=== PATIENT | male | born 1985 | race Caucasian/White ===

== ENCOUNTER 2016-06-17 19:27 | Emergency (ER) | payer BC, OTHER ==
[2016-06-17] MEDS ORDERED: KETOROLAC 30 MG/ML 1 ML VIAL IVP STA (20:01)
[2016-06-17] MEDS ORDERED: METOCLOPRAMIDE 5 MG/ML 2 ML VIAL IVP STA (20:01)
[2016-06-17] MEDS ORDERED: SODIUM CHLORIDE 0.9% 500 ML IV STA (20:01)
[2016-06-17 20:16] LABS: Basophils # (A) 0.1 k/uL (0-0.2); Basophils % (A) 1 %; CH 33.1; CHCM 33.5; Eosinophils # (A) 0.3 k/uL (0-0.7); Eosinophils % (A) 3 %; HCT 51.8 % (39.0-53.0); HDW 2.23; HGB 16.8 gm/dL (13.0-17.5); Luc # (Auto) 0.27; Luc % (Auto) 3; Lymphocytes # (A) 2.1 k/uL (1.0-4.8); Lymphocytes % (A) 21 %; MCH 32.1 pg (25.0-35.0); MCHC 32.4 g/dL (31.0-37.0); MCV 99.1 fL (80.0-100.0); Mean Platelet Volume 9.1; Monocytes # (A) 0.5 k/uL (0-1.0); Monocytes % (A) 5 %; Neutrophils # (A) 6.5 k/uL (1.3-7.7); Neutrophils % (A) 68 %; RBC 5.22 m/uL (4.30-5.90); RDW 13.1 % (11.5-15.5); WBC 9.6 k/uL (3.8-10.6); WBC (Perox) 9.57
[2016-06-17 20:27] LABS: Amorphous Sediment,Urine Rare /hpf; Appearance,Urine Cloudy (Clear); Bacteria,Urine Moderate /hpf; Bilirubin,Urine Negative (Negative); Glucose,Urine (UA) Negative (Negative); Ketones,Urine Negative (Negative); Leukocyte Esterase,Urine Negative (Negative); Mucus,Urine Rare /hpf; Nitrite,Urine Negative (Negative); PH, Urine 7.5 (5.0-8.0); Particle Count 15102; Protein,Urine Trace (Negative); RBC,Urine 2 /hpf (0-5); Specific Gravity,Urine 1.021 (1.001-1.035); UA Billing (MACRO vs. MICRO) MICRO; Urobilinogen,Urine <2.0 mg/dL (<2.0)
[2016-06-17 20:28] LABS: Amylase 41 U/L (30-110); Anion Gap 13 mmol/L; Calcium 9.6 mg/dL (8.4-10.2); Carbon Dioxide 27 mmol/L (22-30); Chloride 105 mmol/L (98-107); Glucose 99 mg/dL (74-99); Non-African American GFR(MDRD) >60 (>60 ml/min/1.73 sqM); Sodium 145 mmol/L (137-145); Total Bilirubin 0.7 mg/dL (0.2-1.3)
[2016-06-17 20:34] LABS: ALT 34 U/L (21-72); AST 29 U/L (17-59); Alkaline Phosphatase 52 U/L (38-126); Blood Urea Nitrogen 11 mg/dL (9-20); Potassium 5.3 mmol/L (3.5-5.1)
--- NOTE | 2016-06-17 20:37 | XR ---
EXAMINATION TYPE: XR abdomen 2V DATE OF EXAM: 06/17/2016 8:32 PM CLINICAL HISTORY: Abdominal pain not further specified per order. History of kidney stones presents w ith right flank pain with nausea and vomiting per patient TECHNIQUE: Supine and upright views of the abdomen are obtained. COMPARISON: Abdominal x-ray October 07, 2013. CT abdomen and pelvis April 12, 2015. FINDINGS: There is some paucity of bowel gas. Visualized gas is noted in nondistended small and larg e bowel loops. There is air-fluid level in somewhat prominent stomach, correlate for recent meal sisi stion. There is no pneumoperitoneum or suspicious calcification seen. Lung bases are clear. Visualize d osseous structures are intact. IMPRESSION: Overall nonspecific favor nonobstructive bowel gas pattern. No definite nephrolithiasis.
--- NOTE | 2016-06-17 21:31 | ED ---
General Adult HPI - General Chief complaint: Abdominal Pain Stated complaint: abdominal pain Time Seen by Provider: 06/17/16 19:39 Source: patient Mode of arrival: ambulatory Limitations: no limitations - Related Data Previous Rx's Medication Instructions Recorded Ondansetron Odt [Zofran ODT] 4 mg PO Q8HR PRN #5 tab 06/17/16 Allergies Allergy/AdvReac Type Severity Reaction Status Date / Time No Known Allergies Allergy Verified 06/17/16 19:50 Review of Systems ROS Statement: Those systems with pertinent positive or pertinent negative responses have been documented in the HPI. ROS Other: All systems not noted in ROS Statement are negative. Past Medical History Past Medical History: No Reported History Additional Past Medical History / Comment(s): kidney stones History of Any Multi-Drug Resistant Organisms: None Reported Past Surgical History: No Surgical Hx Reported Past Psychological History: No Psychological Hx Reported Smoking Status: Former smoker Past Alcohol Use History: Occasional Past Drug Use History: None Reported General Exam Limitations: no limitations Course Vital Signs 06/17/16 06/17/16 19:32 22:13 Temperature 98.1 F Pulse Rate 98 73 Respiratory 20 16 Rate Blood Pressure 129/65 115/56 O2 Sat by Pulse 98 97 Oximetry Medical Decision Making - Medical Decision Making Medical decision patient's white count is 9.6 hemoglobin 16.8 hematocrit of 41.8. Patient's potassium is 5.3 he is being rehydrated. The patient's BUN 11 creatinine 0.9 the GFR greater than 60. Glucose 99. Urine shows 2 red blood cells. X-ray of the abdomen was done and reviewed by radiologist's he compared this to previous x-ray and CAT scan. His final impression is overall a nonspecific favor nonobstructive bowel gas pattern. No definite nephrolithiasis. As read by Dr. rhodes At this time the patient is requesting to go home. Wants a work note for today. No pain whatsoever. No nausea no vomiting. He will be given a prescription for Zofran in case he gets a recurrent discomfort. He may have passed a stone already. Advised to follow-up with the family physician. - Lab Data Result diagrams: 06/17/16 19:55 06/17/16 19:55 Lab Results 06/17/16 06/17/16 06/17/16 Range/Units 19:55 19:55 19:55 WBC 9.6 (3.8-10.6) k/uL RBC 5.22 (4.30-5.90) m/uL Hgb 16.8 (13.0-17.5) gm/dL Hct 51.8 (39.0-53.0) % MCV 99.1 (80.0-100.0) fL MCH 32.1 (25.0-35.0) pg MCHC 32.4 (31.0-37.0) g/dL RDW 13.1 (11.5-15.5) % Plt Count 188 (150-450) k/uL Neutrophils % 68 % Lymphocytes % 21 % Monocytes % 5 % Eosinophils % 3 % Basophils % 1 % Neutrophils # 6.5 (1.3-7.7) k/uL Lymphocytes # 2.1 (1.0-4.8) k/uL Monocytes # 0.5 (0-1.0) k/uL Eosinophils # 0.3 (0-0.7) k/uL Basophils # 0.1 (0-0.2) k/uL Sodium 145 (137-145) mmol/L Potassium 5.3 H (3.5-5.1) mmol/L Chloride 105 (98-107) mmol/L Carbon Dioxide 27 (22-30) mmol/L Anion Gap 13 mmol/L BUN 11 (9-20) mg/dL Creatinine 0.90 (0.66-1.25) mg/dL Est GFR (MDRD) Af Amer >60 (>60 ml/min/1.73 sqM) Est GFR (MDRD) Non-Af >60 (>60 ml/min/1.73 sqM) Glucose 99 (74-99) mg/dL Calcium 9.6 (8.4-10.2) mg/dL Total Bilirubin 0.7 (0.2-1.3) mg/dL AST 29 (17-59) U/L ALT 34 (21-72) U/L Alkaline Phosphatase 52 (38-126) U/L Total Protein 8.0 (6.3-8.2) g/dL Albumin 4.6 (3.5-5.0) g/dL Amylase 41 (30-110) U/L Lipase 41 (23-300) U/L Urine Color Yellow Urine Appearance Cloudy (Clear) Urine pH 7.5 (5.0-8.0) Ur Specific [place] 1.021 (1.001-1.035) Urine Protein Trace H (Negative) Urine Glucose (UA) Negative (Negative) Urine Ketones Negative (Negative) Urine Blood Negative (Negative) Urine Nitrate Negative (Negative) Urine Bilirubin Negative (Negative) Urine Urobilinogen <2.0 (<2.0) mg/dL Ur Leukocyte Esterase Negative (Negative) Urine RBC 2 (0-5) /hpf Amorphous Sediment Rare H (None) /hpf Urine Bacteria Moderate H (None) /hpf Urine Mucus Rare H (None) /hpf Disposition Clinical Impression: Renal colic on right side Disposition: HOME SELF-CARE Condition: Stable Instructions: Renal Colic (ED) Additional Instructions: Increase fluid intake. Use ibuprofen for pain. Use Zofran for nausea. Follow- up family physician Prescriptions: Ondansetron Odt [Zofran ODT] 4 mg PO Q8HR PRN #5 tab PRN Reason: Nausea Time of Disposition: 23:22
[2016-06-17 22:14] VITALS: RESP 16
[2016-06-17 23:30] VITALS: BP 118/69; PULSE 85; TEMP 97.4
== END 2016-06-17 23:44 | disposition home or self-care (01) ==
LOC: EC 19:27
DX: N23 Unspecified renal colic (principal); Z87.891 Personal history of nicotine dependence
CPT/HCPCS: 36415; 80053; 82150; 83690; 85025; 81001; 87086; 74020; 99284; 96374; 96375; 96361; J2765; J1885

== ENCOUNTER 2016-10-02 09:54 | Emergency (ER) | payer BC ==
[2016-10-02] MEDS ORDERED: IBUPROFEN 800 MG TAB PO STA (10:31)
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
--- NOTE | 2016-10-02 10:53 | XR ---
EXAMINATION TYPE: PA view chest and left rib series DATE OF EXAM: 10/02/2016 COMPARISON: NONE HISTORY: 30-year-old male with pain after fall a few days ago. FINDINGS: Cardiomediastinal silhouette, aorta, and pulmonary vasculature are within normal limits. No consolida tion, pneumothorax, or pleural effusion. Only seen on one of the views, there is subtle cortical step off along the anteriormost aspect of the left eighth rib near the costochondral junction. IMPRESSION: Suspect a subtle nondisplaced or minimally displaced fracture of the anterior left eighth rib near th e costochondral junction. Correlate for point tenderness here. No acute cardiopulmonary process.
[2016-10-02 11:18] VITALS: BP 147/81; PULSE 88; RESP 17; TEMP 98.1
== END 2016-10-02 11:18 | disposition home or self-care (01) ==
LOC: EC 09:54
DX: S22.32XA Fracture of one rib, left side, initial encounter for closed fracture (principal); F17.200 Nicotine dependence, unspecified, uncomplicated; W01.198A Fall on same level from slipping, tripping and stumbling with subsequent striking against other object, initial encounter; Y93.89 Activity, other specified
CPT/HCPCS: 99283

== ENCOUNTER → 2016-11-16 | Outpatient (CLI) | payer BC ==
--- NOTE | 2016-11-16 10:51 | XR ---
EXAMINATION TYPE: XR ankle complete bilateral DATE OF EXAM: 11/16/2016 CLINICAL HISTORY: Bilateral ankle pain. TECHNIQUE: Frontal, lateral and oblique images of the bilateral ankles are obtained. COMPARISON: None. FINDINGS: There is no acute fracture/dislocation evident in either ankle. There is tiny inferior ca lcaneal spur on the right noted. The Ankle mortise appears within normal limits bilaterally. Bilatera l os trigonum are noted posterior to the talus. The overlying soft tissue appears unremarkable bilat erally. IMPRESSION: Tiny inferior calcaneal spur on the right with bilateral os trigonum's are noted.
== END ==
LOC: RADXRMAIN 10:06
PROVIDERS: ATTEND Family Medicine
DX: M77.31 Calcaneal spur, right foot (principal)

== ENCOUNTER 2018-04-11 22:26 | Emergency (ER) | payer BC, OTHER ==
[2018-04-11] MEDS ORDERED: DIPH,PERTUS(ACELL)TETVAC-LF 0.5 ML VIAL IM ONE (22:41)
[2018-04-11] MEDS ORDERED: SODIUM CHLORIDE 0.9% 1,000 ML IV STA (22:41)
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
[2018-04-11 23:20] LABS: Basophils # (A) 0.1 k/uL (0-0.2); Basophils % (A) 1 %; Eosinophils # (A) 0.2 k/uL (0-0.7); Eosinophils % (A) 2 %; HCT 50.2 % (39.0-53.0); Lymphocytes # (A) 2.3 k/uL (1.0-4.8); Lymphocytes % (A) 24 %; MCH 31.4 pg (25.0-35.0); MCHC 31.9 g/dL (31.0-37.0); MCV 98.5 fL (80.0-100.0); Mean Platelet Volume 7.6; Monocytes # (A) 0.5 k/uL (0-1.0); Monocytes % (A) 5 %; Neutrophils # (A) 6.5 k/uL (1.3-7.7); Neutrophils % (A) 67 %; Platelet Count 199 k/uL (150-450); RDW 13.6 % (11.5-15.5); WBC 9.7 k/uL (3.8-10.6)
[2018-04-11 23:33] LABS: ALT 21 U/L (21-72); AST 39 U/L (17-59); Albumin 3.6 g/dL (3.5-5.0); Alcohol 51 mg/dL; Alkaline Phosphatase 46 U/L (38-126); Anion Gap 11 mmol/L; Blood Urea Nitrogen 9 mg/dL (9-20); Calcium 8.8 mg/dL (8.4-10.2); Carbon Dioxide 20 mmol/L (22-30); Chloride 110 mmol/L (98-107); Glucose 113 mg/dL (74-99); Potassium 3.7 mmol/L (3.5-5.1); Sodium 141 mmol/L (137-145); Total Bilirubin 1.1 mg/dL (0.2-1.3); Total Protein 6.3 g/dL (6.3-8.2)
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
[2018-04-11 23:35] LABS: INR 0.9 (<1.2); Partial Thromboplastin Time 22.4 sec (22.0-30.0); Prothrombin Time 9.9 sec (9.0-12.0)
--- NOTE | 2018-04-12 00:35 | XR ---
EXAMINATION TYPE: XR forearm LT DATE OF EXAM: 04/12/2018 COMPARISON: NONE HISTORY: Arm pain TECHNIQUE: 2 views FINDINGS joint spaces are normal.: I see no fracture nor dislocation. Radius and ulna appear intact. Soft tissues appear normal. IMPRESSION: Negative left forearm exam.
[2018-04-12] MEDS ORDERED: LIDOCAINE 1% INJ 10MG/ML (20 ML MDV) SQ ONE (00:37)
[2018-04-12 02:06] VITALS: BP 116/92; PULSE 72; RESP 16; TEMP 97.6
== END 2018-04-12 02:24 | disposition home or self-care (01) ==
LOC: EC 22:26
DX: S01.312A Laceration without foreign body of left ear, initial encounter (principal); S00.03XA Contusion of scalp, initial encounter; S50.12XA Contusion of left forearm, initial encounter; F17.200 Nicotine dependence, unspecified, uncomplicated; Z23 Encounter for immunization; Y08.02XA Assault by strike by baseball bat, initial encounter; Y93.89 Activity, other specified
CPT/HCPCS: 36415; 86900; 86901; 80053; 85025; 85610; 85730; 86850; 80320; 73090; 72125; 70450; 90715; 99285; 12013; 96360; 90471; J2001

== ENCOUNTER 2018-06-06 23:05 | Emergency (ER) | payer BC, OTHER ==
[2018-06-06 23:12] VITALS: BP 121/81; PULSE 94; RESP 16; TEMP 97.7
--- NOTE | 2018-06-06 23:50 | ED ---
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 He was reportedly picked up for a Court ordered evaluation. The patient denies any complaints when I interview him. He denies suicidal or homicidal ideation. MD Complaint: other Associated Psychiatric Symptoms: none Improves With: none Worsens With: none Associated Symptoms: denies other symptoms - Related Data Home Medications Medication Instructions Recorded Confirmed Acetaminophen Tab [Tylenol Tab] 650 mg PO Q6H PRN 04/11/18 04/11/18 Allergies Allergy/AdvReac Type Severity Reaction Status Date / Time No Known Allergies Allergy Verified 06/06/18 23:12 Review of Systems ROS Statement: Those systems with pertinent positive or pertinent negative responses have been documented in the HPI. ROS Other: All systems not noted in ROS Statement are negative. Eyes: Denies: vision change Respiratory: Denies: cough, dyspnea Cardiovascular: Denies: chest pain, palpitations Gastrointestinal: Denies: abdominal pain, vomiting Musculoskeletal: Denies: back pain Neurological: Denies: headache Psychiatric: Denies: anxiety, depression, homicidal thoughts, suicidal thoughts Past Medical History Past Medical History: No Reported History Additional Past Medical History / Comment(s): kidney stones History of Any Multi-Drug Resistant Organisms: None Reported Past Surgical History: Ear Surgery Additional Past Surgical History / Comment(s): tubes Past Psychological History: No Psychological Hx Reported Smoking Status: Current every day smoker Past Alcohol Use History: Daily Past Drug Use History: None Reported General Exam Limitations: no limitations General appearance: alert, in no apparent distress Head exam: Present: atraumatic, normocephalic Respiratory exam: Present: normal lung sounds bilaterally. Absent: respiratory distress, wheezes, rales, rhonchi, stridor Cardiovascular Exam: Present: regular rate, normal rhythm, normal heart sounds. Absent: systolic murmur, diastolic murmur, rubs, gallop GI/Abdominal exam: Present: soft. Absent: tenderness Neurological exam: Present: alert Psychiatric exam: Absent: depressed, agitated, anxious, homicidal ideation, suicidal ideation Skin exam: Present: warm, dry, intact, normal color. Absent: rash Course Vital Signs 06/06/18 23:09 Temperature 97.7 F Pulse Rate 94 Respiratory 16 Rate Blood Pressure 121/81 O2 Sat by Pulse 97 Oximetry Medical Decision Making - Medical Decision Making Patient is 32-year-old man brought to have Court ordered psychiatric evaluation. I had my interview of the patient he is not expressing any suicidal or homicidal ideation. He is not having hallucinations. He is not displaying gross delusional thought content or disordered thought processes. I did clear him to have behavioral health evaluation, and there evaluation is similar to mine. He was staffed with the psychiatrist who feels that he is cleared for outpatient disposition. - Lab Data Lab Results 06/06/18 Range/Units 23:45 Urine Opiates Screen Not Detected (NotDetected) Ur Oxycodone Screen Not Detected (NotDetected) Urine Methadone Screen Not Detected (NotDetected) Ur Propoxyphene Screen Not Detected (NotDetected) Ur Barbiturates Screen Not Detected (NotDetected) U Tricyclic Antidepress Not Detected (NotDetected) Ur Phencyclidine Scrn Not Detected (NotDetected) Ur Amphetamines Screen Not Detected (NotDetected) U Methamphetamines Scrn Not Detected (NotDetected) U Benzodiazepines Scrn Not Detected (NotDetected) Urine Cocaine Screen Not Detected (NotDetected) U Marijuana (THC) Screen Not Detected (NotDetected) Disposition Clinical Impression: Feared condition not demonstrated Disposition: HOME SELF-CARE Condition: Good Instructions (If sedation given, give patient instructions): Mood Disorders (ED ) Is patient prescribed a controlled substance at d/c from ED?: No Referrals: None,Stated [Primary Care Provider] - 1-2 days
[2018-06-07 00:12] LABS: Amphetamine Screen,Urine Not Detected (NotDetected); Barbiturate Screen,Urine Not Detected (NotDetected); Benzodiazepines Screen,Urine Not Detected (NotDetected); Cocaine Screen,Urine Not Detected (NotDetected); Methadone Screen, Urine Not Detected (NotDetected); Opiate Screen,Urine Not Detected (NotDetected); Oxycodone Screen, Urine Not Detected (NotDetected); Phencyclidine Screen,Urine Not Detected (NotDetected); Tricyclic Antidepressant,Urine Not Detected (NotDetected); Urn Cannabinoid Scrn Not Detected (NotDetected)
== END 2018-06-07 02:54 | disposition home or self-care (01) ==
LOC: EC 23:05
DX: Z71.1 Person with feared health complaint in whom no diagnosis is made (principal); F17.200 Nicotine dependence, unspecified, uncomplicated
CPT/HCPCS: 80306; 82075; 99283

== ENCOUNTER 2018-06-07 23:52 | Emergency (ER) | payer BC, OTHER ==
[2018-06-08 00:01] VITALS: BP 120/72; PULSE 82; RESP 20; TEMP 97.6
--- NOTE | 2018-06-08 01:03 | ED ---
General Adult HPI - General Source: patient, family, RN notes reviewed Mode of arrival: ambulatory Limitations: no limitations <Giacomo Almaguer P - Last Filed: 06/08/18 01:36> <Layne Johnson P - Last Filed: 06/08/18 02:00> - General Chief complaint: ENT Stated complaint: Pain when swallowing - History of Present Illness Initial comments: 32-year-old male presents to the emergency department for a chief complaint of sore throat. Patient states this started earlier today. Patient states it is painful when he swallows. He denies any difficulty swallowing or breathing. He is able to eat and drink. He denies fevers or chills. Patient denies cough , ear pain, nausea vomiting. Patient denies any trauma. Patient has no other complaints at this time including shortness of breath, chest pain, abdominal pain, nausea or vomiting, headache, or visual changes. (Giacomo Almaguer) - Related Data Home Medications Medication Instructions Recorded Confirmed Acetaminophen Tab [Tylenol Tab] 650 mg PO Q6H PRN 04/11/18 04/11/18 Allergies Allergy/AdvReac Type Severity Reaction Status Date / Time No Known Allergies Allergy Verified 06/08/18 00:01 Review of Systems ROS Other: All systems not noted in ROS Statement are negative. <Giacomo Almaguer - Last Filed: 06/08/18 01:36> ROS Other: All systems not noted in ROS Statement are negative. <Layne Johnson P - Last Filed: 06/08/18 02:00> ROS Statement: Those systems with pertinent positive or pertinent negative responses have been documented in the HPI. Past Medical History Past Medical History: No Reported History Additional Past Medical History / Comment(s): kidney stones History of Any Multi-Drug Resistant Organisms: None Reported Past Surgical History: Ear Surgery Additional Past Surgical History / Comment(s): tubes Past Psychological History: No Psychological Hx Reported Smoking Status: Current every day smoker Past Alcohol Use History: Daily Past Drug Use History: None Reported <Giacomo Almaguer - Last Filed: 06/08/18 01:36> General Exam Limitations: no limitations General appearance: alert, in no apparent distress Head exam: Present: atraumatic, normocephalic, normal inspection Eye exam: Present: normal appearance, PERRL, EOMI. Absent: scleral icterus, conjunctival injection, periorbital swelling ENT exam: Present: normal exam, normal oropharynx (Uvula midline, no tonsillar exudates noted bilaterally), mucous membranes moist, TM's normal bilaterally ( Nonerythematous), normal external ear exam Neck exam: Present: normal inspection, full ROM. Absent: tenderness, meningismus, lymphadenopathy Respiratory exam: Present: normal lung sounds bilaterally. Absent: respiratory distress, wheezes, rales, rhonchi, stridor Cardiovascular Exam: Present: regular rate, normal rhythm, normal heart sounds. Absent: systolic murmur, diastolic murmur, rubs, gallop, clicks Neurological exam: Present: alert, oriented X3, CN II-XII intact Psychiatric exam: Present: normal affect, normal mood <Giacomo Almaguer - Last Filed: 06/08/18 01:36> Vital Signs 06/07/18 23:58 Temperature 97.6 F Pulse Rate 82 Respiratory 20 Rate Blood Pressure 120/72 O2 Sat by Pulse 98 Oximetry Medical Decision Making <Giacomo Almaguer P - Last Filed: 06/08/18 01:36> <Layne Johnson - Last Filed: 06/08/18 02:00> - Medical Decision Making 32-year-old male presents to the emergency department for a chief of sore throat times one day. This started earlier today. No difficulty swallowing. No fevers. Patient denies cough or congestion. On exam uvula is midline. No tonsillar exudates bilaterally. No evidence of abscess. Oropharynx is patent, no difficult breathing or swallowing. Patient is not in distress. Handling oral secretions. At this time patient likely has a viral pharyngitis. He will follow up with primary care. He will return here if he has any worsening symptoms. Otherwise he will take Motrin for pain and can gargle with salt water. Patient apparently left AMA (Giacomo Almaguer) I was available for consultation in the emergency department. The history and physical exam were done by the midlevel provider. I was consulted for this patient's care. I reviewed the case with the midlevel provider and based on their presentation of the patient, I agree with the assessment and medical decision making, however the patient eloped from the department prior to formal discharge by the mid-level provider. (Layne Johnson) - Lab Data Lab Results 06/08/18 Range/Units 00:40 Group A Strep Rapid Negative (Negative) Disposition Is patient prescribed a controlled substance at d/c from ED?: No Time of Disposition: 01:02 <Giacomo Almaguer P - Last Filed: 06/08/18 01:36> <Layne Johnson - Last Filed: 06/08/18 02:00> Clinical Impression: Viral pharyngitis Disposition: HOME SELF-CARE Condition: Good Instructions (If sedation given, give patient instructions): Pharyngitis (ED) Additional Instructions: Please take Motrin and Tylenol for pain. Please follow-up with primary care in 1-2 days. Drink cold liquids. Return here to the emergency department if you have any worsening symptoms. Referrals: Mic Romero MD [REFERRING] - 1-2 days
== END 2018-06-08 01:04 | disposition home or self-care (01) ==
LOC: EC 23:52
DX: J02.8 Acute pharyngitis due to other specified organisms (principal); F17.200 Nicotine dependence, unspecified, uncomplicated
CPT/HCPCS: 87081; 87430; 99283

== ENCOUNTER 2018-09-04 16:22 | Emergency (ER) | payer OTHER ==
[2018-09-04 16:57] VITALS: BP 111/69; PULSE 94; RESP 18; TEMP 98.3
[2018-09-04] MEDS ORDERED: AMOXIC-POT CLAV 875-125MG 1 EACH TAB PO STA (17:53)
--- NOTE | 2018-09-04 17:56 | ED ---
ENT HPI - General Chief complaint: Dental/Oral Stated complaint: Abscess Tooth & Ear Pain Time Seen by Provider: 09/04/18 16:44 Source: patient Mode of arrival: ambulatory Limitations: no limitations - History of Present Illness Initial comments: 32-year-old male presenting for left ear pain. Patient states that he has had left ear pain for the past 2 days. He states that he has issues on offices left back tooth. He states is cracked. He is not sure if this is so she. He denies any significant to pain today. Patient denies any jaw swelling facial swelling. Patient denies any palpable abscess in the mouth. He states that he was concerned that there is maybe an abscess of the tooth is causing pain in the left ear. Patient has any headache nausea vomiting. Patient has any fever or chills or night sweats. No swelling below tongue or the lips. Patient denies any difficulty swallowing or breathing. Remaining review of systems negative upon arrival patient appears well no signs of acute distress. Patient is afebrile. - Related Data Previous Rx's Medication Instructions Recorded Amoxic-Pot Clav 875-125Mg 1 tab PO Q12HR 7 Days #14 tablet 09/04/18 [Augmentin 875-125] Allergies Allergy/AdvReac Type Severity Reaction Status Date / Time No Known Allergies Allergy Verified 09/04/18 17:35 Review of Systems ROS Statement: Those systems with pertinent positive or pertinent negative responses have been documented in the HPI. ROS Other: All systems not noted in ROS Statement are negative. Past Medical History Past Medical History: No Reported History Additional Past Medical History / Comment(s): kidney stones History of Any Multi-Drug Resistant Organisms: None Reported Past Surgical History: Ear Surgery Additional Past Surgical History / Comment(s): tubes Past Psychological History: No Psychological Hx Reported Smoking Status: Current every day smoker Past Alcohol Use History: Daily Past Drug Use History: None Reported General Exam - General Exam Comments Initial Comments: General: The patient is awake and alert, in no distress, and does not appear acutely ill. Eye: Pupils are equal, round and reactive to light, extra-ocular movements are intact. No nystagmus. There is normal conjunctiva bilaterally. No signs of icterus. Ears, nose, mouth and throat: There are moist mucous membranes and no oral lesions. No swelling below the tongue palpable abscess next to tooth number #18. No pain to percussion of tooth. Left tympanic membrane erythematous. Bulging. No effusion. External auditory canal within normal limits. No tenderness to palpation of the mastoid. Normal right tympanic membrane. Neck: The neck is supple, there is no tenderness or JVD. No nuchal rigidity. No photophobia. Cardiovascular: There is a regular rate and rhythm. No murmur, rub or gallop is appreciated. Musculoskeletal: Normal ROM, no tenderness. Strength 5/5. Sensation intact. Pulses equal bilaterally 2+. Neurological: A&O x 3. CN II-XII intact, There are no obvious motor or sensory deficits. Coordination appears grossly intact. Speech is normal. Skin: Skin is warm and dry and no rashes or lesions are noted. Psychiatric: Cooperative, appropriate mood & affect, normal judgment. Limitations: no limitations Course Vital Signs 09/04/18 16:54 Temperature 98.3 F Pulse Rate 94 Respiratory 18 Rate Blood Pressure 111/69 O2 Sat by Pulse 98 Oximetry Medical Decision Making - Medical Decision Making Well-appearing 32-year-old male presenting for left ear pain. Patient states he came in for the ear pain. He states he is unsure if this is caused by his chronic left dental pain. Patient denies a dental pain today. There is no facial swelling or evidence of Mynor's angina. No evidence of abscess or d ental pain on examination. Patient does have a left-sided otitis media no evidence of mastoiditis. Patient appears well nontoxic. Patient will be placed on Augmentin given both dental and ear coverage. Patient be on antibiotic for 7 days as follow up with both dentist an outpatient primary care provider. Patient is agreeable care plan as well as discharge. Patient was discharged appearing well return parameters were discussed the patient verbalized understanding. Discussed case with Dr. Oconnor prior to discharge. Disposition Clinical Impression: Otitis media, Chronic dental pain Disposition: HOME SELF-CARE Condition: Good Instructions (If sedation given, give patient instructions): Ear Infection (ED), Toothache (ED) Additional Instructions: Please use medication as discussed. Please follow-up with family doctor in the next 2 day, and dentist for tooth extraction in 1-2 days. Please return to emergency room if the symptoms increase or worsen or for any other concerns including fever, swelling below tongue, facial swelling, difficulty breathing or swallowing. Prescriptions: Amoxic-Pot Clav 875-125Mg [Augmentin 875-125] 1 tab PO Q12HR 7 Days #14 tablet Is patient prescribed a controlled substance at d/c from ED?: No Referrals: None,Stated [Primary Care Provider] - 1-2 days [facility] [[facility] - 1-2 days Time of Disposition: 17:56
== END 2018-09-04 18:44 | disposition home or self-care (01) ==
LOC: EC 16:22
DX: H66.91 Otitis media, unspecified, right ear (principal); K08.89 Other specified disorders of teeth and supporting structures; G89.29 Other chronic pain; F17.200 Nicotine dependence, unspecified, uncomplicated
CPT/HCPCS: 99282

== ENCOUNTER 2020-11-22 17:15 | Emergency (ER) | payer BC, OTHER ==
[2020-11-22 18:07] VITALS: BP 128/77; PULSE 69; RESP 20; TEMP 98.1
[2020-11-22 18:23] LABS: Appearance,Urine Cloudy (Clear); Bacteria,Urine Rare /hpf; Bilirubin,Urine Negative (Negative); Blood,Urine Large (Negative); Calcium Oxalate Crystals,Urine Many /hpf; Color,Urine Light Red; Glucose,Urine (UA) Negative (Negative); Ketones,Urine 1+ (Negative); Leukocyte Esterase,Urine Small (Negative); Mucus,Urine Few /hpf; Nitrite,Urine Negative (Negative); Protein,Urine 2+ (Negative); RBC,Urine >182 /hpf (0-5); Squamous Epithelial Cell,Urine 1 /hpf (0-4); WBC,Urine 11 /hpf (0-5)
[2020-11-22] MEDS ORDERED: SODIUM CHLORIDE 0.9% 1,000 ML IV STA (18:41)
[2020-11-22] MEDS ORDERED: KETOROLAC 15 MG/ML 1 ML VIAL IVP STA (18:41)
[2020-11-22] MEDS ORDERED: PANTOPRAZOLE 40 MG/10 ML VIAL IVP STA (18:41)
[2020-11-22 19:14] LABS: Basophils % (A) 1 %; Eosinophils # (A) 0.3 k/uL (0-0.7); Eosinophils % (A) 5 %; HCT 44.1 % (39.0-53.0); HGB 14.5 gm/dL (13.0-17.5); Lymphocytes # (A) 2.2 k/uL (1.0-4.8); Lymphocytes % (A) 34 %; MCH 32.2 pg (25.0-35.0); MCV 97.8 fL (80.0-100.0); Mean Platelet Volume 9.4; Monocytes # (A) 0.4 k/uL (0-1.0); Monocytes % (A) 6 %; Neutrophils # (A) 3.4 k/uL (1.3-7.7); Neutrophils % (A) 53 %; Platelet Count 161 k/uL (150-450); RBC 4.51 m/uL (4.30-5.90); RDW 13.3 % (11.5-15.5); WBC 6.5 k/uL (3.8-10.6)
--- NOTE | 2020-11-22 19:28 | CT ---
EXAMINATION TYPE: CT abdomen pelvis wo con DATE OF EXAM: 11/22/2020 COMPARISON: 04/12/2015 HISTORY: left flank pain CT DLP: 1144.4 mGycm Automated exposure control for dose reduction was used. Images obtained from the diaphragm to the floor the pelvis with no contrast. Lung bases are clear. There is no pleural effusion. Heart size is normal. There is no pericardial eff usion. Liver spleen stomach appear intact. Liver is large and measures 22.5 cm in length. There is no pancre atic mass. Gallbladder is mildly dilated and measures 4.5 cm. There is no adrenal mass. Bile ducts are not dilated. Kidneys have normal size. There is no hydroneph rosis. Ureters are not dilated. There is no retroperitoneal adenopathy. Urinary bladder is empty. The re is no inguinal hernia. There is no free fluid in the pelvis. There is no sign of a pelvic mass. Appendix is not definitely seen. Short segment of the appendix is possibly visualized at the cecum an d measures 8 mm in diameter. There is no sign of inflammatory reaction. There is no ascites or free air. There is no sign of a bowel obstruction. There is no mesenteric nick a. Terminal ileum appears normal. The lumbar vertebra have normal alignment. Posterior elements are intact. There is no compression fra cture. The bony pelvis is intact. The hip joints are intact. IMPRESSION: Borderline dilated gallbladder that is a change compared to old exam. Cholecystitis is possible. Juan M woods.
[2020-11-22 19:30] LABS: ALT 20 U/L (4-49); AST 32 U/L (17-59); African American GFR (CKD) >90 (>60 ml/min/1.73 sqM); Albumin 4.1 g/dL (3.5-5.0); Alkaline Phosphatase 42 U/L (38-126); Anion Gap 6 mmol/L; Blood Urea Nitrogen 18 mg/dL (9-20); Calcium 9.1 mg/dL (8.4-10.2); Carbon Dioxide 24 mmol/L (22-30); Chloride 106 mmol/L (98-107); Glucose 89 mg/dL (74-99); Lipase 51 U/L (23-300); Non-African American GFR(CKD) >90 (>60 ml/min/1.73 sqM); Potassium 4.5 mmol/L (3.5-5.1); Sodium 136 mmol/L (137-145); Total Bilirubin 0.3 mg/dL (0.2-1.3); Total Protein 6.1 g/dL (6.3-8.2)
--- NOTE | 2020-11-22 19:44 | ED ---
Abdominal Pain HPI - General Chief Complaint: Abdominal Pain Stated Complaint: Abdominal Pain Time Seen by Provider: 11/22/20 18:35 Source: patient Mode of arrival: ambulatory Limitations: no limitations - History of Present Illness Initial Comments: 34-year-old male presents to emergency department with a chief complaint of abdominal pain. Patient reports the pain started yesterday in the left upper quadrant/left flank pain. He states it comes and goes and he does feel a bit like a burning sensation. He denies any nausea vomiting or diarrhea. States also he noticed dark urine with UTI like symptoms including dysuria, increased urgency or frequency. Denies any penile discharge, testicular swelling or erythema. Denies any concerns for STDs. Denies any fevers or chills. - Related Data Previous Rx's Medication Instructions Recorded Amoxic-Pot Clav 875-125Mg 1 tab PO Q12HR 7 Days #14 tablet 09/04/18 [Augmentin 875-125] Allergies Allergy/AdvReac Type Severity Reaction Status Date / Time No Known Allergies Allergy Verified 11/22/20 18:06 Review of Systems ROS Statement: Those systems with pertinent positive or pertinent negative responses have been documented in the HPI. ROS Other: All systems not noted in ROS Statement are negative. Past Medical History Past Medical History: No Reported History Additional Past Medical History / Comment(s): kidney stones History of Any Multi-Drug Resistant Organisms: None Reported Past Surgical History: Ear Surgery Additional Past Surgical History / Comment(s): tubes Past Psychological History: No Psychological Hx Reported Smoking Status: Never smoker Past Alcohol Use History: Daily Past Drug Use History: None Reported General Exam Limitations: no limitations General appearance: alert, in no apparent distress Head exam: Present: atraumatic, normocephalic, normal inspection Eye exam: Present: normal appearance, PERRL Pupils: Present: normal accommodation ENT exam: Present: normal exam, normal oropharynx, mucous membranes moist Neck exam: Present: normal inspection, full ROM. Absent: tenderness Respiratory exam: Present: normal lung sounds bilaterally. Absent: respiratory distress, wheezes, rales, rhonchi, stridor, chest wall tenderness, accessory muscle use Cardiovascular Exam: Present: regular rate, normal rhythm, normal heart sounds. Absent: systolic murmur GI/Abdominal exam: Present: soft, tenderness (Negative mild tenderness in left lower quadrant. Negative right upper quadrant tenderness.). Absent: distended, guarding, rebound, rigid Extremities exam: Present: normal inspection, full ROM, normal capillary refill. Absent: tenderness, pedal edema, joint swelling Back exam: Present: normal inspection, full ROM. Absent: tenderness, CVA tenderness (R), CVA tenderness (L), muscle spasm, paraspinal tenderness, vertebral tenderness Neurological exam: Present: alert, oriented X3 Psychiatric exam: Present: normal affect, normal mood Skin exam: Present: warm, dry, intact, normal color Course Vital Signs 11/22/20 18:05 Temperature 98.1 F Pulse Rate 69 Respiratory 20 Rate Blood Pressure 128/77 O2 Sat by Pulse 98 Oximetry Medical Decision Making - Medical Decision Making 34-year-old male presents to emergency department with a chief complaint of abdominal pain. Physical examination, left upper quadrant pain. No significant left flank pain. No CVA tenderness. No right upper quadrant tenderness. He did complain his UTI like symptoms. UA shows hematuria but no signs of urinary tract infection. There is calcium oxalate as well. CT of abdomen and pelvis was obtained due to concerns for nephrolithiasis or possible hydronephrosis. CT shows no acute findings of this. However, does show a dilated gallbladder, cholecystitis cannot be ruled out. Clinically the patient does not have right upper quadrant tenderness or epigastric tenderness. Laboratory work reveals no elevated liver enzymes, lipase, bilirubin. On reevaluation, patient reports im provement in his symptoms. I suspect patient possibly has passed a renal stone. I advised him to follow-up with a urologist for the gross hematuria. I will not treat for UTI at this time. Urine culture is pending. I advised him to return to emergency department if symptoms worsen. Case discussed with Dr. Salazar. - Lab Data Result diagrams: 11/22/20 18:58 11/22/20 18:58 Lab Results 11/22/20 11/22/20 11/22/20 Range/Units 18:08 18:58 18:58 WBC 6.5 (3.8-10.6) k/uL RBC 4.51 (4.30-5.90) m/uL Hgb 14.5 (13.0-17.5) gm/dL Hct 44.1 (39.0-53.0) % MCV 97.8 (80.0-100.0) fL MCH 32.2 (25.0-35.0) pg MCHC 33.0 (31.0-37.0) g/dL RDW 13.3 (11.5-15.5) % Plt Count 161 (150-450) k/uL MPV 9.4 Neutrophils % 53 % Lymphocytes % 34 % Monocytes % 6 % Eosinophils % 5 % Basophils % 1 % Neutrophils # 3.4 (1.3-7.7) k/uL Lymphocytes # 2.2 (1.0-4.8) k/uL Monocytes # 0.4 (0-1.0) k/uL Eosinophils # 0.3 (0-0.7) k/uL Basophils # 0.0 (0-0.2) k/uL Sodium 136 L (137-145) mmol/L Potassium 4.5 (3.5-5.1) mmol/L Chloride 106 (98-107) mmol/L Carbon Dioxide 24 (22-30) mmol/L Anion Gap 6 mmol/L BUN 18 (9-20) mg/dL Creatinine 0.81 (0.66-1.25) mg/dL Est GFR (CKD-EPI)AfAm >90 (>60 ml/min/1.73 sqM) Est GFR (CKD-EPI)NonAf >90 (>60 ml/min/1.73 sqM) Glucose 89 (74-99) mg/dL Calcium 9.1 (8.4-10.2) mg/dL Total Bilirubin 0.3 (0.2-1.3) mg/dL AST 32 (17-59) U/L ALT 20 (4-49) U/L Alkaline Phosphatase 42 (38-126) U/L Total Protein 6.1 L (6.3-8.2) g/dL Albumin 4.1 (3.5-5.0) g/dL Lipase 51 (23-300) U/L Urine Color Light Red Urine Appearance Cloudy (Clear) Urine pH 6.0 (5.0-8.0) Ur Specific Hawks 1.050 H (1.001-1.035) Urine Protein 2+ H (Negative) Urine Glucose (UA) Negative (Negative) Urine Ketones 1+ H (Negative) Urine Blood Large H (Negative) Urine Nitrite Negative (Negative) Urine Bilirubin Negative (Negative) Urine Urobilinogen 2.0 (<2.0) mg/dL Ur Leukocyte Esterase Small H (Negative) Urine RBC >182 H (0-5) /hpf Urine WBC 11 H (0-5) /hpf Ur Squamous Epith Cells 1 (0-4) /hpf Calcium Oxalate Crystal Many H (None) /hpf Urine Bacteria Rare H (None) /hpf Urine Mucus Few H (None) /hpf Disposition Clinical Impression: Hematuria, Abdominal pain Disposition: HOME SELF-CARE Condition: Stable Instructions (If sedation given, give patient instructions): Abdominal Pain (ED) Additional Instructions: Please return to the Emergency Department if symptoms worsen or any other concerns. Follow-up with urologist. Is patient prescribed a controlled substance at d/c from ED?: No Referrals: None,Stated [Primary Care Provider] - 1-2 days Time of Disposition: 20:00
[2020-11-22] MEDS ORDERED: AMOXIC-POT CLAV 875MG STARTER PACK 2 TAB BTL PO STA (20:34)
== END 2020-11-22 20:38 | disposition home or self-care (01) ==
LOC: EC 17:15
DX: R31.9 Hematuria, unspecified (principal); R10.12 Left upper quadrant pain; Z87.442 Personal history of urinary calculi
CPT/HCPCS: 99284 ×2; 96374 ×2; 96375 ×2; 96361 ×3; 36415; 80053; 83690; 85025; 81001; 87086; 74176; J1885; C9113

== ENCOUNTER 2023-07-11 03:15 | Emergency (ER) | payer BC, OTHER ==
--- NOTE | 2023-07-11 03:43 | ED ---
SOB HPI - General Chief Complaint: Shortness of Breath Stated Complaint: SOB Time Seen by Provider: 07/11/23 03:42 Source: patient Mode of arrival: ambulatory Limitations: no limitations - History of Present Illness Initial Comments: Jonatan is a pleasant 37-year-old gentleman who presents the ER today for evaluation of progressively worsening shortness of breath. Patient reports he had a mild cough for couple of days but today at work he was feeling very short of breath cough had some chills and thought he should come to the ER for evaluation. MD Complaint: shortness of breath, cough - Related Data Previous Rx's Medication Instructions Recorded Amoxic-Pot Clav 875-125Mg 1 tab PO Q12HR 7 Days #14 tablet 09/04/18 [Augmentin 875-125] Amoxicillin/Potassium Clav 1 tab PO Q12HR #20 tab 11/22/20 [Augmentin 875-125 Tablet] Azithromycin [Zithromax Z Pack] 250 mg PO DAILY 4 Days #4 tab 07/11/23 Azithromycin [Zithromax Z Pack] 250 mg PO DAILY 4 Days #4 tab 07/11/23 Allergies Allergy/AdvReac Type Severity Reaction Status Date / Time No Known Allergies Allergy Verified 07/11/23 03:25 Review of Systems ROS Statement: Those systems with pertinent positive or pertinent negative responses have been documented in the HPI. ROS Other: All systems not noted in ROS Statement are negative. Past Medical History Past Medical History: No Reported History Additional Past Medical History / Comment(s): kidney stones History of Any Multi-Drug Resistant Organisms: None Reported Past Surgical History: Ear Surgery Additional Past Surgical History / Comment(s): tubes Past Psychological History: No Psychological Hx Reported Smoking Status: Vaper Past Alcohol Use History: Daily Past Drug Use History: None Reported General Exam - General Exam Comments Initial Comments: Physical Exam GENERAL: Patient is well-developed and well-nourished. Patient is nontoxic and well-hydrated and is in no distress. HENT: Normocephalic, Atraumatic. EYES: PERRL, EOMI PULMONARY: Unlabored respirations. CARDIOVASCULAR: Tachycardic, regular Warm and well perfused extremities ABDOMEN: Non-distended SKIN: No rashes or bruising : Deferred NEUROLOGIC: Alert and oriented Normal speech Normal gait MUSCULOSKELETAL: Moving all extremities with no apparent injury PSYCHIATRIC: No SI/HI Limitations: no limitations Course Vital Signs 07/11/23 07/11/23 03:23 05:03 Temperature 98.7 F 98.1 F Pulse Rate 105 H 86 Respiratory 22 16 Rate Blood Pressure 168/94 120/66 O2 Sat by Pulse 96 96 Oximetry Medical Decision Making - Medical Decision Making Was pt. sent in by a medical professional or institution (ALEX Whitmore, [employer] [facility], urgent care, hospital, or halfway...) When possible be specific @ -No Did you speak to anyone other than the patient for history (EMS, parent, family, police, friend...)? What history was obtained from this source @ -No Did you review nursing and triage notes (agree or disagree)? Why? @ -I reviewed and agree with nursing and triage notes Were old charts reviewed (outside hosp., previous admission, EMS record, old EKG, old radiological studies, urgent care reports/EKG's, halfway records)? Report findings @ -No old charts were reviewed Differential Diagnosis (chest pain, altered mental status, abdominal pain women, abdominal pain men, vaginal bleeding, weakness, fever, dyspnea, syncope, headache, dizziness, GI bleed, back pain, seizure, CVA, palpatations, mental health)? @ -Not applicable EKG interpreted by me (3pts min.). @ -As above X-rays interpreted by me (1pt min.). @ -left sided pneumonia CT interpreted by me (1pt min.). @ -None done U/S interpreted by me (1pt. min.). @ -None done What testing was considered but not performed or refused? (CT, X-rays, U/S, labs)? Why? @ -None What meds were considered but not given or refused? Why? @ -None Did you discuss the management of the patient with other professionals (professionals i.e. ALEX Whitmore, [facility], lab, RT, psych nurse, case management social worker, bridge toll collector, teacher, search and rescue officer, case mgr)? Give summary @ -No Was smoking cessation discussed for >3mins.? @ -No Was critical care preformed (if so, how long)? @ -No Were there social determinants of health that impacted care today? How? (Homelessness, low income, unemployed, alcoholism, drug addiction, transportation, low edu. Level, literacy, decrease access to med. care, care home, rehab)? @ -No Was there de-escalation of care discussed even if they declined (Discuss DNR or withdrawal of care, Hospice)? DNR status @ -No What co-morbidities impacted this encounter? (DM, HTN, Smoking, COPD, CAD, Cancer, CVA, ARF, Chemo, Hep., AIDS, mental health diagnosis, sleep apnea, morbid obesity)? @ -None Was patient admitted / discharged? Hospital course, mention meds given and route, prescriptions, significant lab abnormalities, going to OR and other pertinent info. @ -Discharged Patient was seen and evaluated, history was obtained from patient. Patient was mildly tachycardic but in no respiratory distress x-rays concerning for pneumonia and was started on azithromycin. Undiagnosed new problem with uncertain prognosis? @ -No Drug Therapy requiring intensive monitoring for toxicity (Heparin, Nitro, Insulin, Cardizem)? @ -No Were any procedures done? @ -No Diagnosis/symptom? @ -Community acquired pneumonia Acute, or Chronic, or Acute on Chronic? @ -Acute Uncomplicated (without systemic symptoms) or Complicated (systemic symptoms)? @ -Default Side effects of treatment? @ -No Exacerbation, Progression, or Severe Exacerbation? @ -No Poses a threat to life or bodily function? How? (Chest pain, [place], [place], pneumonia, PE, COPD, DKA, ARF, appy, cholecystitis, CVA, Diverticulitis, Homicidal, Suicidal, threat to staff... and all critical care pts) @ -No - Lab Data Lab Results 07/11/23 Range/Units 03:40 Influenza Type A (PCR) Not Detected (Not Detectd) Influenza Type B (PCR) Not Detected (Not Detectd) RSV (PCR) Not Detected (Not Detectd) SARS-CoV-2 (PCR) Not Detected (Not Detectd) - EKG Data -: EKG Interpreted by Me EKG Comments: EKG interpreted by me EKG was obtained due to shortness of breath, EKG obtained at 3:41 AM, rate is 88 rhythm is sinus, HI 191 QRS 142 QTc 461 there are no acute ST elevations or depressions no evidence of ischemia infarction or pathologic arrhythmia. Disposition Clinical Impression: Community acquired pneumonia Disposition: HOME SELF-CARE Condition: Stable Instructions (If sedation given, give patient instructions): Community Acquired Pneumonia (DC) Prescriptions: Azithromycin [Zithromax Z Pack] 250 mg PO DAILY 4 Days #4 tab Azithromycin [Zithromax Z Pack] 250 mg PO DAILY 4 Days #4 tab Is patient prescribed a controlled substance at d/c from ED?: No Referrals: Tomas Gomez MD [Primary Care Provider] - 1-2 days
[2023-07-11] MEDS: AZITHROMYCIN 500 MG TAB PO STA (05:25)
[2023-07-11 05:37] VITALS: BP 120/66; PULSE 86; RESP 16; TEMP 98.1
--- NOTE | 2023-07-11 06:31 | XR ---
EXAM: XR Chest, 2 Views CLINICAL HISTORY: cough TECHNIQUE: Frontal and lateral views of the chest. COMPARISON: No relevant prior studies available. FINDINGS: Lungs: Unremarkable. No infiltration, atelectasis or mass density. Pleural space: Unremarkable. No pneumothorax. No pleural fluid. Heart: Unremarkable. No cardiomegaly. Mediastinum: Unremarkable. Normal mediastinal contour. Bones/joints: Unremarkable. No acute abnormalities. IMPRESSION: Negative chest x-rays.
== END 2023-07-11 05:31 | disposition home or self-care (01) ==
LOC: EC 03:15
DX: J18.9 Pneumonia, unspecified organism (principal); F17.290 Nicotine dependence, other tobacco product, uncomplicated
CPT/HCPCS: 71046; 87636; 99285

== ENCOUNTER 2023-07-23 02:49 | Emergency (ER) | payer BC ==
[2023-07-23 03:18] VITALS: TEMP 97.4
--- NOTE | 2023-07-23 04:04 | XR ---
EXAM: XR Chest, 2 Views CLINICAL HISTORY: ITS.REASON XR Reason: shortness of breath TECHNIQUE: Frontal and lateral views of the chest. COMPARISON: No relevant prior studies available. FINDINGS: Lungs: No consolidation or mass. Pleural space: No effusion. Heart: No cardiomegaly. Bones/joints: No acute findings. IMPRESSION: No acute cardiopulmonary process.
--- NOTE | 2023-07-23 04:07 | ED ---
SOB HPI - General Chief Complaint: Shortness of Breath Stated Complaint: pneumonia Source: patient, RN notes reviewed, old records reviewed Mode of arrival: ambulatory Limitations: no limitations - History of Present Illness Initial Comments: This is a 37-year-old male to the ER for evaluation. Patient was here last week for pneumonia significant pneumonia with underlying asthma exacerbation with history of vaping. Patient did complete antibiotics with no improvement in shortness of breath increased cough congestion shortness of breath today with chest pain chest pain worse when he takes a deep breath worse when he has a coughing fit. Mainly complaining of tightness in his chest and shortness of breath. No fevers MD Complaint: shortness of breath, cough, "asthma attack" -: days(s) Severity: mild, moderate Severity scale (1-10): 2 Consistency: intermittent Improves With: nothing Worsens With: nothing Known History Of: asthma Context: recent URI, recent illness Associated Symptoms: chest pain, cough, sputum production Treatments Prior to Arrival: none - Related Data Previous Rx's Medication Instructions Recorded Amoxic-Pot Clav 875-125Mg 1 tab PO Q12HR 7 Days #14 tablet 09/04/18 [Augmentin 875-125] Amoxicillin/Potassium Clav 1 tab PO Q12HR #20 tab / [Augmentin 875-125 Tablet] Azithromycin [Zithromax Z Pack] 250 mg PO DAILY 4 Days #4 tab 07/11/23 Azithromycin [Zithromax Z Pack] 250 mg PO DAILY 4 Days #4 tab 07/11/23 Albuterol Inhaler [Ventolin Hfa 1 - 2 puff INHALATION Q6H PRN #1 07/23/23 Inhaler] each Amoxic-Pot Clav 875-125Mg 1 tab PO BID 7 Days #14 tab 07/23/23 [Augmentin 875-125] Allergies Allergy/AdvReac Type Severity Reaction Status Date / Time No Known Allergies Allergy Verified 07/11/23 03:25 Review of Systems ROS Statement: Those systems with pertinent positive or pertinent negative responses have been documented in the HPI. ROS Other: All systems not noted in ROS Statement are negative. Past Medical History Past Medical History: No Reported History Additional Past Medical History / Comment(s): kidney stones History of Any Multi-Drug Resistant Organisms: None Reported Past Surgical History: Ear Surgery Additional Past Surgical History / Comment(s): tubes Past Psychological History: No Psychological Hx Reported Smoking Status: Vaper Past Alcohol Use History: Daily Past Drug Use History: None Reported General Exam Limitations: no limitations General appearance: alert, in no apparent distress Head exam: Present: atraumatic, normocephalic, normal inspection Eye exam: Present: normal appearance, PERRL, EOMI. Absent: scleral icterus, conjunctival injection, periorbital swelling ENT exam: Present: normal exam, mucous membranes moist Neck exam: Present: normal inspection. Absent: tenderness, meningismus, lymphadenopathy Respiratory exam: Present: wheezes. Absent: respiratory distress, rales, rhonchi, stridor Cardiovascular Exam: Present: regular rate, normal rhythm, normal heart sounds. Absent: systolic murmur, diastolic murmur, rubs, gallop, clicks GI/Abdominal exam: Present: soft, normal bowel sounds. Absent: distended, tenderness, guarding, rebound, rigid Extremities exam: Present: normal inspection, full ROM, normal capillary refill. Absent: tenderness, pedal edema, joint swelling, calf tenderness Back exam: Present: normal inspection Neurological exam: Present: alert, oriented X3, CN II-XII intact Psychiatric exam: Present: normal affect, normal mood Skin exam: Present: warm, dry, intact, normal color. Absent: rash Course Vital Signs 07/23/23 07/23/23 07/23/23 03:00 04:24 05:51 Temperature 97.4 F L Pulse Rate 73 68 Respiratory 18 16 Rate Blood Pressure 147/75 O2 Sat by Pulse 98 Oximetry 07/23/23 07/23/23 06:11 06:16 Temperature Pulse Rate 66 77 Respiratory 18 Rate Blood Pressure 121/75 O2 Sat by Pulse 98 Oximetry - Reevaluation(s) Reevaluation #1: 07/23/23 04:07 Medical records reviewed Reevaluation #2: 07/23/23 05:05 Patient symptoms are improved patient symptoms are improved Reevaluation #3: 07/23/23 05:06 Patient informed of results and questions answered Reevaluation #4: 07/23/23 04:07 Was pt. sent in by a medical professional or institution (, PA, [employer] PROFESSOR, urgent care, hospital, or alf...) When possible be specific @ -no Did you speak to anyone other than the patient for history (EMS, parent, family, police, friend...)? What history was obtained from this source @ -no Did you review nursing and triage notes (agree or disagree)? Why? @ -agree Are old charts reviewed (outside hosp., previous admission, EMS record, old EKG, old radiological studies, urgent care reports/EKG's, alf records)? Report findings @ -yes Differential Diagnosis (chest pain, altered mental status, abdominal pain women, abdominal pain men, vaginal bleeding, weakness, fever, dyspnea, syncope, headache, dizziness, GI bleed, back pain, seizure, CVA, palpatations, mental health, musculoskeletal)? @ -prior EKG interpreted by me (3pts min.). @ -no X-rays interpreted by me (1pt min.). @ -yes negative for acute disease CT interpreted by me (1pt min.). @ -no U/S interpreted by me (1pt. min.). @ -no What testing was considered but not performed or refused? (CT, X-rays, U/S, labs)? Why? @ -none What meds were considered but not given or refused? Why? @ -none Did you discuss the management of the patient with other professionals (professionals i.e. , PA, [employer] PROFESSOR, lab, RT, psych nurse, oncology social work, armature tester, teacher, physics technical officer, registered nurse hh case manager)? Give summary @ -no Was smoking cessation discussed for >3mins.? @ -no Was critical care preformed (if so, how long)? @ -no Were there social determinants of health that impacted care today? How? (Homelessness, low income, unemployed, alcoholism, drug addiction, transportation, low edu. Level, literacy, decrease access to med. care, [facility], rehab)? @ -none Was there de-escalation of care discussed even if they declined (Discuss DNR or withdrawal of care, Hospice)? DNR status @ -no What co-morbidities impacted this encounter? (DM, HTN, Smoking, COPD, CAD, Cancer, CVA, ARF, Chemo, Hep., AIDS, mental health diagnosis, sleep apnea, morbid obesity)? @ -none Was patient admitted / discharged? Hospital course, mention meds given and route, prescriptions, significant lab abnormalities, going to OR and other pertinent info. @ - 37 male to ER for eval 37 male to ER for evaluation of cough congestion shortness of breath and chest tightness. Patient has no acute findings here in the emergency department feels improved and can be discharged home Discharge Undiagnosed new problem with uncertain prognosis? @ -no Drug Therapy requiring intensive monitoring for toxicity (Heparin, Nitro, Insulin, Cardizem)? @ -no Were any procedures done? @ -no Diagnosis/symptom? @ -Cough congestion oppressed reflection Acute, or Chronic, or Acute on Chronic? @ -Acute Uncomplicated (without systemic symptoms) or Complicated (systemic symptoms)? @ -Complicated Side effects of treatment? @ -no Exacerbation, Progression, or Severe Exacerbation? @ -exacerbation Poses a threat to life or bodily function? How? (Chest pain, [place], [place], pneumonia, PE, COPD, DKA, ARF, appy, cholecystitis, CVA, Diverticulitis, Homicidal, Suicidal, threat to staff... and all critical care pts) @ -no Reevaluation #5: Differential Dyspnea: Coronary syndrome, arrhythmia, tamponade, asthma, COPD, pulmonary embolism, pneumonia, pneumothorax, pulmonary effusion, anaphylaxis, diabetic ketoacidosis, flailed chest, pulmonary contusion, diaphragmatic rupture, anemia, neuromuscular, this is not meant to be an all-inclusive list. Medical Decision Making - Medical Decision Making 37 male to ER for eval 37 male to ER for evaluation of cough congestion shortness of breath and chest tightness. Patient has no acute findings here in the emergency department feels improved and can be discharged home - Lab Data Lab Results 07/23/23 Range/Units 03:05 Influenza Type A (PCR) Not Detected (Not Detectd) Influenza Type B (PCR) Not Detected (Not Detectd) RSV (PCR) Not Detected (Not Detectd) SARS-CoV-2 (PCR) Not Detected (Not Detectd) - Radiology Data Radiology results: report reviewed (Chest x-ray is negative for acute disease), image reviewed Disposition Clinical Impression: Asthma with acute exacerbation, Community acquired pneumonia, Acute bronchitis Disposition: HOME SELF-CARE Instructions (If sedation given, give patient instructions): Acute Bronchitis (ED) Prescriptions: Amoxic-Pot Clav 875-125Mg [Augmentin 875-125] 1 tab PO BID 7 Days #14 tab Albuterol Inhaler [Ventolin Hfa Inhaler] 1 - 2 puff INHALATION Q6H PRN #1 each PRN Reason: Cough Is patient prescribed a controlled substance at d/c from ED?: No Referrals: Tomas Gomez MD [Primary Care Provider] - 1-2 days Time of Disposition: 06:45
[2023-07-23] MEDS: DEXAMETHASONE SOD PHOSPHATE 10 MG/ML 1 ML VIAL IM STA (04:39)
[2023-07-23] MEDS: AMOXIC-POT CLAV 875-125MG 1 EACH TAB PO STA (04:39)
[2023-07-23] MEDS: IBUPROFEN 800 MG TAB PO STA (04:43)
[2023-07-23] MEDS: IPRATROPIUM-ALBUTEROL 3 ML NEB INHALATION STA (05:51)
[2023-07-23 06:34] VITALS: BP 121/75; PULSE 77; RESP 18
== END 2023-07-23 07:00 | disposition home or self-care (01) ==
LOC: EC 02:49
DX: J45.901 Unspecified asthma with (acute) exacerbation (principal); J18.9 Pneumonia, unspecified organism; J20.9 Acute bronchitis, unspecified; F17.290 Nicotine dependence, other tobacco product, uncomplicated
CPT/HCPCS: 94640; 87636; 71046; 99285; 96372; J1100